=== PATIENT | male | born 1940 | race Caucasian/White ===

== ENCOUNTER 2016-08-08 09:01 | Emergency (ER) | payer MEDICARE, MEDICAID ==
[~2016-08-08] VITALS: Ht 175.3 cm; Wt 65.0 kg
[~2016-08-08 09:01] MED LIST: IBUP-1681 PO; LISI5TAB PO; METF500T4 PO; OMEP10 PO
[2016-08-08 09:21] LABS: GLUCOSE,POINT OF CARE 67 MG/DL (70-110)
[2016-08-08] MEDS ORDERED: MECLIZINE HCL 25 MG TABLET PO ONE (09:30)
[2016-08-08 10:34] LABS: BASOPHILS % (AUTO) 0.5 % (0.0-2.0); EOSINOPHILS % (AUTO) 1.5 % (1.0-6.0); HEMATOCRIT 46.4 % (41-53); HEMOGLOBIN 15.5 g/dL (13.5-17.5); LYMPHOCYTES # (AUTO) 1.7 K/uL (1.0-4.8); LYMPHOCYTES % (AUTO) 33.9 % (22.0-44.0); MEAN CORPUSCULAR HEMOGLOBIN 29.4 pg (26.0-34.0); MEAN CORPUSCULAR HGB CONC 33.4 G/dL (31.0-37.0); MEAN CORPUSCULAR VOLUME 88 fL (80-100); MONOCYTES # (AUTO) 0.6 K/uL (0.1-1.0); NEUTROPHILS # (AUTO) 2.5 K/uL (1.8-7.7); NEUTROPHILS % (AUTO) 51.1 % (40.0-70.0); PLATELET COUNT (AUTO) 212 K/uL (150-450); RED BLOOD CELL COUNT(AUTO) 5.28 MIL/uL (4.50-5.90); WHITE BLOOD COUNT (AUTO) 4.9 K/uL (4.5-11.0)
[2016-08-08 10:44] LABS: CALCIUM, TOTAL 9.4 mg/dL (8.8-10.5); CREATININE 1.38 mg/dL (0.60-1.30); POTASSIUM 5.1 mmol/L (3.5-5.1)
[2016-08-08 10:51] LABS: ALBUMIN 3.5 g/dL (3.4-5.0); BILIRUBIN,TOTAL 0.8 mg/dL (0.1-1.0); TOTAL PROTEIN, SERUM 7.5 g/dL (6.4-8.2)
[2016-08-08 12:04] VITALS: BP 151/80
== END 2016-08-08 12:07 | disposition home or self-care (01) ==
LOC: EMS 09:02
DX: R42 Dizziness and giddiness (principal); E11.9 Type 2 diabetes mellitus without complications; K21.9 Gastro-esophageal reflux disease without esophagitis; I10 Essential (primary) hypertension; Z88.0 Allergy status to penicillin
CPT/HCPCS: 36415; 70450; 80053; 82962; 85025; 93005; 99285; G0238

== ENCOUNTER 2016-11-18 11:33 | Emergency (ER) | payer MEDICARE, MEDICAID ==
[~2016-11-18] VITALS: Ht 175.3 cm; Wt 68.0 kg
[2016-11-18] MEDS ORDERED: LISI-618 PO (11:50)
[2016-11-18] MEDS ORDERED: FINA5TAB41 PO (11:50)
[2016-11-18 12:02] LABS: GLUCOSE,POINT OF CARE 98 MG/DL (70-110)
[2016-11-18 13:26] VITALS: BP 163/91
== END 2016-11-18 13:57 | disposition home or self-care (01) ==
LOC: EMS 11:35
DX: L03.113 Cellulitis of right upper limb (principal); S50.361A Insect bite (nonvenomous) of right elbow, initial encounter; E11.9 Type 2 diabetes mellitus without complications; K21.9 Gastro-esophageal reflux disease without esophagitis; I10 Essential (primary) hypertension; Z88.0 Allergy status to penicillin; W57.XXXA Bitten or stung by nonvenomous insect and other nonvenomous arthropods, initial encounter; Y93.89 Activity, other specified; Y92.89 Other specified places as the place of occurrence of the external cause; Y99.8 Other external cause status
CPT/HCPCS: 82962; 99283

== ENCOUNTER 2016-12-16 12:54 | Emergency (ER) | payer MEDICARE, MEDICAID ==
[~2016-12-16] VITALS: Ht 175.3 cm; Wt 68.2 kg
[~2016-12-16 12:54] MED LIST changes: +FINA5TAB41 PO; -IBUP-1681 PO; +LISI-618 PO; -LISI5TAB PO; -OMEP10 PO
[2016-12-16 13:20] LABS: BASOPHILS # (AUTO) 0.04 K/uL (0.00-0.20); BASOPHILS % (AUTO) 0.7 % (0.0-2.0); EOSINOPHILS # (AUTO) 0.04 K/uL (0.00-0.70); EOSINOPHILS % (AUTO) 0.74 % (1.0-6.0); HEMATOCRIT 43.7 % (41-53); HEMOGLOBIN 14.5 g/dL (13.5-17.5); LYMPHOCYTES # (AUTO) 1.4 K/uL (1.0-4.8); LYMPHOCYTES % (AUTO) 25.3 % (22.0-44.0); MEAN CORPUSCULAR HGB CONC 33.2 G/dL (31.0-37.0); MEAN CORPUSCULAR VOLUME 87 fL (80-100); MONOCYTES # (AUTO) 0.6 K/uL (0.1-1.0); MONOCYTES % (AUTO) 10.7 % (2.0-9.0); NEUTROPHILS # (AUTO) 3.4 K/uL (1.8-7.7); NEUTROPHILS % (AUTO) 62.6 % (40.0-70.0); PLATELET COUNT (AUTO) 249 K/uL (150-450); RED BLOOD CELL COUNT(AUTO) 5.01 MIL/uL (4.50-5.90); RED CELL DISTRIBUTION WIDTH 14.3 % (11.5-14.5); WHITE BLOOD COUNT (AUTO) 5.4 K/uL (4.5-11.0)
[2016-12-16 13:31] LABS: ANION GAP 10 mmol/L (8-16); CALCIUM, TOTAL 9.5 mg/dL (8.8-10.5); CARBON DIOXIDE 25 mmol/L (22-29); CHLORIDE 104 mmol/L (98-107); CREATININE 1.37 mg/dL (0.60-1.30); GLOMERULAR FILTR. RATE CALC 51 mL/min (>60); POTASSIUM 4.3 mmol/L (3.5-5.1); SODIUM SERUM 139 mmol/L (136-145); UREA NITROGEN, BLOOD 17 mg/dL (7-18)
[2016-12-16 13:37] LABS: ALANINE AMINOTRANSFERASE 23 U/L (12-78); ALBUMIN 3.7 g/dL (3.4-5.0); ASPARTATE AMINOTRANSFERASE 16 U/L (15-37); TOTAL PROTEIN, SERUM 7.6 g/dL (6.4-8.2)
[2016-12-16 14:38] LABS: CREATINE KINASE, TOTAL 178 U/L (39-308)
[2016-12-16 15:28] VITALS: BP 153/82
[2016-12-17 14:17] LABS: GLUCOSE,POINT OF CARE 85 MG/DL (70-110)
== END 2016-12-16 15:44 | disposition home or self-care (01) ==
LOC: EMS 12:55
DX: R07.89 Other chest pain (principal); E11.9 Type 2 diabetes mellitus without complications; K21.9 Gastro-esophageal reflux disease without esophagitis; I10 Essential (primary) hypertension; F17.200 Nicotine dependence, unspecified, uncomplicated; F12.90 Cannabis use, unspecified, uncomplicated; Z88.0 Allergy status to penicillin
CPT/HCPCS: 71020; 82962; 93005; 99285

== ENCOUNTER 2017-05-08 12:41 | Emergency (ER) | payer MEDICARE, MEDICAID ==
[~2017-05-08] VITALS: Ht 175.3 cm; Wt 63.6 kg
[2017-05-08 12:58] LABS: GLUCOSE,POINT OF CARE 76 MG/DL (70-110)
[2017-05-08 13:30] LABS: CALCIUM, TOTAL 9.3 mg/dL (8.8-10.5); CREATININE 1.37 mg/dL (0.60-1.30); POTASSIUM 4.8 mmol/L (3.5-5.1)
[2017-05-08 14:00] VITALS: BP 179/88
== END 2017-05-08 14:42 | disposition home or self-care (01) ==
LOC: EMS 12:42
DX: N28.9 Disorder of kidney and ureter, unspecified (principal); E11.9 Type 2 diabetes mellitus without complications; K21.9 Gastro-esophageal reflux disease without esophagitis; H40.9 Unspecified glaucoma; I10 Essential (primary) hypertension; F17.200 Nicotine dependence, unspecified, uncomplicated; F12.90 Cannabis use, unspecified, uncomplicated; Z88.0 Allergy status to penicillin
CPT/HCPCS: 82962; 99283

== ENCOUNTER 2017-05-14 18:00 | Emergency (ER) | payer MEDICARE, MEDICAID ==
[~2017-05-14] VITALS: Ht 175.3 cm; Wt 63.6 kg
[2017-05-14] MEDS ORDERED: ASPI81 PO (18:06)
[2017-05-14 18:12] LABS: GLUCOSE,POINT OF CARE 174 MG/DL (70-110)
[2017-05-14 19:27] LABS: BASOPHILS # (AUTO) 0.16 K/uL (0.00-0.20); BASOPHILS % (AUTO) 2.6 % (0.0-2.0); EOSINOPHILS # (AUTO) 0.05 K/uL (0.00-0.70); EOSINOPHILS % (AUTO) 0.87 % (1.0-6.0); HEMATOCRIT 42.8 % (41-53); HEMOGLOBIN 14.1 g/dL (13.5-17.5); LYMPHOCYTES # (AUTO) 1.7 K/uL (1.0-4.8); LYMPHOCYTES % (AUTO) 26.2 % (22.0-44.0); MEAN CORPUSCULAR HEMOGLOBIN 29.3 pg (26.0-34.0); MEAN CORPUSCULAR HGB CONC 32.9 G/dL (31.0-37.0); MEAN CORPUSCULAR VOLUME 89 fL (80-100); MONOCYTES # (AUTO) 0.5 K/uL (0.1-1.0); MONOCYTES % (AUTO) 7.6 % (2.0-9.0); NEUTROPHILS % (AUTO) 62.7 % (40.0-70.0); PLATELET COUNT (AUTO) 260 K/uL (150-450); RED BLOOD CELL COUNT(AUTO) 4.81 MIL/uL (4.50-5.90); RED CELL DISTRIBUTION WIDTH 14.2 % (11.5-14.5)
[2017-05-14 19:45] LABS: CALCIUM, TOTAL 9.7 mg/dL (8.8-10.5); CREATININE 1.35 mg/dL (0.60-1.30); POTASSIUM 4.6 mmol/L (3.5-5.1)
[2017-05-14 19:52] LABS: ALBUMIN 3.7 g/dL (3.4-5.0); BILIRUBIN,TOTAL 0.7 mg/dL (0.1-1.0); TOTAL PROTEIN, SERUM 7.6 g/dL (6.4-8.2)
[2017-05-14 20:53] LABS: APPEARANCE,URINE CLEAR (CLEAR); BILIRUBIN,URINE NEGATIVE (NEGATIVE); GLUCOSE, URINE (UA) NEGATIVE (NEGATIVE); KETONES,URINE NEGATIVE (NEGATIVE); LEUKOCYTE ESTERASE ,URINE NEGATIVE (NEGATIVE); NITRATE,URINE NEGATIVE (NEGATIVE); OCCULT BLOOD,URINE NEGATIVE (NEGATIVE); PH,URINE 6.5 (5.0-8.0); PROTEIN,URINE NEGATIVE (NEGATIVE)
[2017-05-14] MEDS ORDERED: PANTOPRAZOLE SODIUM 40 MG/VIAL IVP ONE (21:15)
[2017-05-14] MEDS ORDERED: METOCLOPRAMIDE HCL 5 MG/ML 2 ML VIAL IVP ONE (21:15)
[2017-05-14 22:38] VITALS: BP 133/80
== END 2017-05-14 22:51 | disposition home or self-care (01) ==
LOC: EMS 18:02
DX: K85.90 Acute pancreatitis without necrosis or infection, unspecified (principal); K21.9 Gastro-esophageal reflux disease without esophagitis; E11.9 Type 2 diabetes mellitus without complications; I10 Essential (primary) hypertension; F12.90 Cannabis use, unspecified, uncomplicated; Z88.0 Allergy status to penicillin
CPT/HCPCS: 36415; 74010; 80053; 81003; 82962; 83690; 85025; 96374; 96375; 99285; C9113; J2765

== ENCOUNTER 2017-05-27 12:36 | Emergency (ER) | payer MEDICARE, MEDICAID ==
[~2017-05-27] VITALS: Ht 175.3 cm; Wt 63.6 kg
[~2017-05-27 12:36] MED LIST changes: +ASPI81 PO
[2017-05-27 12:48] LABS: GLUCOSE,POINT OF CARE 153 MG/DL (70-110)
[2017-05-27] MEDS ORDERED: TraMADol HCL 50 MG TABLET PO ONE (13:15)
[2017-05-27 14:57] VITALS: BP 118/77
== END 2017-05-27 14:59 | disposition home or self-care (01) ==
LOC: EMS 12:37
DX: S16.1XXA Strain of muscle, fascia and tendon at neck level, initial encounter (principal); S20.212A Contusion of left front wall of thorax, initial encounter; I10 Essential (primary) hypertension; E11.9 Type 2 diabetes mellitus without complications; K21.9 Gastro-esophageal reflux disease without esophagitis; H40.9 Unspecified glaucoma; F12.10 Cannabis abuse, uncomplicated; F17.200 Nicotine dependence, unspecified, uncomplicated; W01.0XXA Fall on same level from slipping, tripping and stumbling without subsequent striking against object, initial encounter; Y93.01 Activity, walking, marching and hiking; Y92.480 Sidewalk as the place of occurrence of the external cause; Y99.8 Other external cause status; Z88.0 Allergy status to penicillin
CPT/HCPCS: 72040; 82962; 99284

== ENCOUNTER 2017-05-31 17:41 | Emergency (ER) | payer MEDICARE, MEDICAID ==
[~2017-05-31] VITALS: Ht 175.3 cm; Wt 63.6 kg
[2017-05-31 17:58] LABS: GLUCOSE,POINT OF CARE 121 MG/DL (70-110)
[2017-05-31 18:38] LABS: BASOPHILS # (AUTO) 0.02 K/uL (0.00-0.20); BASOPHILS % (AUTO) 0.3 % (0.0-2.0); EOSINOPHILS # (AUTO) 0.05 K/uL (0.00-0.70); EOSINOPHILS % (AUTO) 0.79 % (1.0-6.0); HEMATOCRIT 42.1 % (41-53); LYMPHOCYTES # (AUTO) 1.6 K/uL (1.0-4.8); LYMPHOCYTES % (AUTO) 24.9 % (22.0-44.0); MEAN CORPUSCULAR HGB CONC 33.2 G/dL (31.0-37.0); MEAN CORPUSCULAR VOLUME 87 fL (80-100); MONOCYTES # (AUTO) 0.8 K/uL (0.1-1.0); MONOCYTES % (AUTO) 13.1 % (2.0-9.0); NEUTROPHILS # (AUTO) 3.8 K/uL (1.8-7.7); PLATELET COUNT (AUTO) 313 K/uL (150-450); RED BLOOD CELL COUNT(AUTO) 4.81 MIL/uL (4.50-5.90); RED CELL DISTRIBUTION WIDTH 13.9 % (11.5-14.5); WHITE BLOOD COUNT (AUTO) 6.2 K/uL (4.5-11.0)
[2017-05-31 18:46] LABS: APPEARANCE,URINE CLEAR (CLEAR); GLUCOSE, URINE (UA) NEGATIVE (NEGATIVE); KETONES,URINE NEGATIVE (NEGATIVE); LEUKOCYTE ESTERASE ,URINE NEGATIVE (NEGATIVE); OCCULT BLOOD,URINE NEGATIVE (NEGATIVE); PH,URINE 5.5 (5.0-8.0); PROTEIN,URINE NEGATIVE (NEGATIVE)
[2017-05-31 18:46] LABS: ANION GAP 12 mmol/L (8-16); CALCIUM, TOTAL 9.3 mg/dL (8.8-10.5); CARBON DIOXIDE 21 mmol/L (22-29); CHLORIDE 107 mmol/L (98-107); CREATININE 1.97 mg/dL (0.60-1.30); GLOMERULAR FILTR. RATE CALC 33 mL/min (>60); POTASSIUM 3.8 mmol/L (3.5-5.1); SODIUM SERUM 140 mmol/L (136-145); UREA NITROGEN, BLOOD 31 mg/dL (7-18)
[2017-05-31 18:47] LABS: ADD UA MICROSCOPIC NO
[2017-05-31 19:04] LABS: B-TYPE NATRIURETIC PEPTIDE 27 pg/mL (0-100)
[2017-05-31 19:12] LABS: ALANINE AMINOTRANSFERASE 25 U/L (12-78); ALBUMIN 3.6 g/dL (3.4-5.0); ASPARTATE AMINOTRANSFERASE 17 U/L (15-37); BILIRUBIN,TOTAL 0.5 mg/dL (0.1-1.0); CREATINE KINASE MB 1.3 ng/mL (0-5); CREATINE KINASE, TOTAL 138 U/L (39-308); TOTAL PROTEIN, SERUM 8.1 g/dL (6.4-8.2)
[2017-05-31] MEDS ORDERED: DIPHENOXYLATE/ATROP 2.5-0.025 MG TABLET PO ONE (19:15)
[2017-05-31] MEDS ORDERED: SODIUM CHLORIDE 0.9% 1,000 ML IV ONE ×2 (19:15→20:15)
[2017-05-31 20:47] VITALS: BP 136/79
== END 2017-05-31 21:36 | disposition home or self-care (01) ==
LOC: EMS 17:42
DX: R19.7 Diarrhea, unspecified (principal); E86.0 Dehydration; E11.9 Type 2 diabetes mellitus without complications; K21.9 Gastro-esophageal reflux disease without esophagitis; I10 Essential (primary) hypertension; F17.200 Nicotine dependence, unspecified, uncomplicated; F12.90 Cannabis use, unspecified, uncomplicated; Z88.0 Allergy status to penicillin
CPT/HCPCS: 36415; 71010; 80053; 81003; 82550; 82553; 82962; 83880; 84484; 85025; 85610; 85730; 93005; 96360; 96361; 99285; J7030

== ENCOUNTER 2017-11-19 14:24 | Emergency (ER) | payer OTHER ==
[~2017-11-19] VITALS: Ht 175.3 cm; Wt 63.6 kg
[~2017-11-19 14:24] MED LIST changes: +METF-444 PO; -METF500T4 PO
[2017-11-19 17:00] LABS: APPEARANCE,URINE CLEAR (CLEAR); BILIRUBIN,URINE NEGATIVE (NEGATIVE); GLUCOSE, URINE (UA) NEGATIVE (NEGATIVE); KETONES,URINE NEGATIVE (NEGATIVE); LEUKOCYTE ESTERASE ,URINE NEGATIVE (NEGATIVE); NITRATE,URINE NEGATIVE (NEGATIVE); OCCULT BLOOD,URINE NEGATIVE (NEGATIVE); PH,URINE 6.5 (5.0-8.0); PROTEIN,URINE NEGATIVE (NEGATIVE)
[2017-11-19 17:27] VITALS: BP 117/70
[2017-11-19 17:27] LABS: GLUCOSE,POINT OF CARE 90 MG/DL (70-110)
== END 2017-11-19 17:51 | disposition home or self-care (01) ==
LOC: EMS 14:24
DX: N48.1 Balanitis (principal); I10 Essential (primary) hypertension; E11.9 Type 2 diabetes mellitus without complications; K21.9 Gastro-esophageal reflux disease without esophagitis; F12.90 Cannabis use, unspecified, uncomplicated; Z88.0 Allergy status to penicillin
CPT/HCPCS: 82948; 99283